=== PATIENT | female | born 1960 | race Two or more races ===

== ENCOUNTER 2019-09-27 07:24 | Emergency (ER) | payer OTHER ==
[~2019-09-27] VITALS: Ht 170.2 cm; Wt 102.0 kg
[2019-09-27 07:30] VITALS: BP 136/91
[2019-09-27] MEDS ORDERED: LIDOCAINE-MPF 1%, 5ML ONE (08:54)
[2019-09-27] MEDS ORDERED: LIDOCAINE-MPF 1%, 5ML INFIL ONE (09:00)
[2019-09-27] MEDS ORDERED: DIPH,PERTUSS(ACELL),TET VAC/PF 0.5 ML IM-VACC ONE ×2 (09:12→09:30)
== END 2019-09-27 09:45 | disposition home or self-care (01) ==
LOC: ED 07:46
DX: S01.01XA Laceration without foreign body of scalp, initial encounter (principal); W18.39XA Other fall on same level, initial encounter; Y93.89 Activity, other specified; Y92.098 Other place in other non-institutional residence as the place of occurrence of the external cause; Y99.8 Other external cause status
CPT/HCPCS: 12031; 90471; 90715; 99284

== ENCOUNTER 2019-09-29 11:42 | Emergency (ER) | payer OTHER ==
[~2019-09-29] VITALS: Ht 170.2 cm; Wt 103.5 kg
--- NOTE | 2019-09-29 12:05 | NUR ---
ERMD AT BEDSIDE FOR ASSESSMENT.
--- NOTE | 2019-09-29 12:05 | NUR ---
BREAK RN: PT RPTS [facility] ON 09/26 DENIES LOC, WAS SEEN IN ED AND REC'D DEVON T POST SCALP. TODAY SHE HAS C/O STEWART, DIZZY, UNSTEADY, BLURRY VISION, GEN BODY ACHES. PT ON BP AND PULSE OX MONITORING. DR ROJAS AT BEDSIDE. PT ASSESSMENT, POC REVIEWED AND ORDERS REC'D
[2019-09-29] MEDS ORDERED: ACETAMINOPHEN 325 MG TABLET ONE (12:18)
[2019-09-29] MEDS ORDERED: PROMETHAZINE 25MG TABLET ONE (12:18)
--- NOTE | 2019-09-29 12:21 | NUR ---
BREAK RN: PT MED NOTED FOR STEWART AND NAUSEA. CALL LIGHT W/I REACH, NAD NOTED. CT PENDING
[2019-09-29] MEDS ORDERED: PROMETHAZINE 25MG TABLET PO PRN (12:30)
[2019-09-29] MEDS ORDERED: ACETAMINOPHEN 325 MG TABLET PO ONE (12:30)
--- NOTE | 2019-09-29 12:54 | NUR ---
PT RESTING IN BED, VSS. AWAITING CT. PT A&OX4, PROTECTING OWN AIRWAY WELL. CONT TO MONITOR.
--- NOTE | 2019-09-29 13:18 | NUR ---
PT TO CT.
--- NOTE | 2019-09-29 13:39 | NUR ---
PT UP TO RR, STEADY GAIT. AWAITING CT. VSS.
[2019-09-29] MEDS ORDERED: GADOTERATE 10 MMOL/20 ML SYR ONE (15:02)
--- NOTE | 2019-09-29 15:26 | NUR ---
PT BACK FROM MRI. UP FOR ERMD RECHECK.
--- NOTE | 2019-09-29 15:55 | NUR ---
PT D/C'D PER ORDERS. PT VERBALIZED UNDERSTANDING OF D/C INSTRUCTIONS. HAS STEADY GAIT UPON D/C.
[2019-09-29 15:56] VITALS: BP 138/81
== END 2019-09-29 15:58 | disposition home or self-care (01) ==
LOC: ED 12:41
DX: F07.81 Postconcussional syndrome (principal); E03.9 Hypothyroidism, unspecified
CPT/HCPCS: 70450; 70553; 99285; A9575; Q0169

== ENCOUNTER 2019-11-06 17:35 | Emergency (ER) | payer OTHER ==
[~2019-11-06] VITALS: Ht 172.7 cm; Wt 103.6 kg
[2019-11-06 17:39] VITALS: BP 180/110
[2019-11-06] MEDS ORDERED: NEOSPORIN OINT. PKT 1 PACKET ONE (18:36)
== END 2019-11-06 19:46 | disposition home or self-care (01) ==
LOC: ED 18:40
DX: S62.665A Nondisplaced fracture of distal phalanx of left ring finger, initial encounter for closed fracture (principal); S61.215A Laceration without foreign body of left ring finger without damage to nail, initial encounter; X58.XXXA Exposure to other specified factors, initial encounter; Y93.89 Activity, other specified; Y92.098 Other place in other non-institutional residence as the place of occurrence of the external cause; Y99.8 Other external cause status
CPT/HCPCS: 29130; 99283